=== PATIENT | female | born 1985 ===

== ENCOUNTER 2017-04-21 12:31 | Emergency (ER) | payer MEDICAID, OTHER ==
--- NOTE | 2017-04-21 12:34 | ED PDOC ---
Arrival/HPI - General Time Seen by Provider: 04/21/17 12:33 Historian: Patient - History of Present Illness Narrative History of Present Illness (Text): 04/21/17 12:33 31 y/o female, nkda, c/o lt. eye redness with itching and discharge x 2 days with no fall or trauma. Itching, progress to dry crustiness, no change in vision, no fever or chills, no night sweat, no numbness or tingling, no change in vision, no headache, no other medical or psychological complaints. Past Medical History - Provider Review Nursing Documentation Reviewed: Yes - Infectious Disease Hx of Infectious Diseases: None - Tetanus Immunization Tetanus Immunization: Unknown - Reproductive Currently : No - Past Medical History Past Medical History: No Previous - Psychiatric Hx Depression: No Hx Emotional Abuse: No Hx Physical Abuse: No Hx Substance Use: Yes - Past Surgical History Past Surgical History: No Previous - Suicidal Assessment Feels Threatened In Home Enviroment: No Family/Social History - Physician Review Nursing Documentation Reviewed: Yes Family/Social History: Unknown Family HX Smoking Status: Never Smoked Hx Alcohol Use: Yes Hx Substance Use: Yes Substance used: weed Hx Substance Use Treatment: No Allergies/Home Meds Allergies/Adverse Reactions: Allergies amoxicillin Allergy (Verified 04/21/17 12:39) RASH Review of Systems - Review of Systems Constitutional: absent: Fatigue, Fevers Eyes: Other (lt. eye redness). absent: Vision Changes ENT: absent: Hearing Changes Respiratory: absent: SOB, Cough Cardiovascular: absent: Chest Pain Gastrointestinal: absent: Abdominal Pain, Diarrhea, Nausea, Vomiting Musculoskeletal: absent: Arthralgias, Back Pain Skin: absent: Rash, Pruritis, Ulcer Neurological: absent: Headache, Dizziness Psychiatric: absent: Anxiety, Depression, Suicidal Ideation Physical Exam - Systems Exam Head: Present: Atraumatic, Normocephalic Pupils: Present: PERRL, Other (lt. eye conjunctivitis with no hyphema, no periorbital swelling. ) Extroacular Muscles: Present: EOMI Conjunctiva: Present: Normal Mouth: Present: Moist Mucous Membranes Neck: Present: Normal Range of Motion Respiratory/Chest: Present: Clear to Auscultation, Good Air Exchange. No: Respiratory Distress, Accessory Muscle Use Cardiovascular: Present: Regular Rate and Rhythm, Normal S1, S2. No: Murmurs Abdomen: Present: Normal Bowel Sounds. No: Tenderness, Distention, Peritoneal Signs Back: Present: Normal Inspection Upper Extremity: Present: Normal Inspection. No: Cyanosis, Edema Lower Extremity: Present: Normal Inspection. No: Edema Neurological: Present: GCS=15, Speech Normal, Motor Func Grossly Intact, Gait Normal, Memory Normal Skin: Present: Warm, Dry, Normal Color. No: Rashes Psychiatric: Present: Alert, Oriented x 3, Normal Insight, Normal Concentration Medical Decision Making ED Course and Treatment: 04/21/17 12:45 -Discharge home with zyrtec, erythromycin ointment opthalmic, avoid wearing eye makeup, follow up with your own pmd and opthalmologist within 2 days, return to the ER for any new or worsening signs or symptoms. - PA / [employer] / Resident Statement / has reviewed & agrees with the documentation as recorded. Disposition/Present on Arrival - Present on Arrival Any Indicators Present on Arrival: No History of DVT/PE: No History of Uncontrolled Diabetes: No Urinary Catheter: No History of Decub. Ulcer: No History Surgical Site Infection Following: None - Disposition Have Diagnosis and Disposition been Completed?: Yes Diagnosis: Conjunctivitis Disposition: HOME/ ROUTINE Disposition Time: 12:46 Patient Plan: Discharge Condition: GOOD Additional Instructions: -Discharge home with zyrtec, erythromycin ointment opthalmic, avoid wearing eye makeup, follow up with your own pmd and opthalmologist within 2 days, return to the ER for any new or worsening signs or symptoms. Prescriptions: Cetirizine HCl [Zyrtec] 10 mg PO DAILY PRN #10 capsule PRN Reason: Other Erythromycin 0.5% [Ilytocin] 0.5 inch OS Q4 #1 tube Referrals: Osvaldo Solomon [Staff Provider] - Follow up with primary Forms: WORK NOTE
[2017-04-21 12:39] VITALS: BMI 36.0
[2017-04-21 12:43] VITALS: BP 125/72; PULSE 71; RESP 16; TEMP 98.3; O2SAT 100
== END 2017-04-21 13:15 | disposition home or self-care (01) ==
LOC: ED 12:31
DX: H10.9 Unspecified conjunctivitis (principal)